=== PATIENT | female | born 1955 | race Caucasian/White ===

== ENCOUNTER 2022-04-21 14:49 | Emergency (ER) | payer BC, MEDICARE ==
[2022-04-21 15:40] VITALS: BP 119/60; PULSE 63; RESP 18; TEMP 98
--- NOTE | 2022-04-21 15:56 | XR ---
EXAMINATION TYPE: XR chest 2V DATE OF EXAM: 04/21/2022 COMPARISON: NONE HISTORY: Right-sided rib pain TECHNIQUE: 2 views FINDINGS: Heart and mediastinum are normal. Lungs are clear. Diaphragm is normal. Bony thorax is inta ct. Thoracic aorta is atheromatous. IMPRESSION: No active cardiopulmonary disease.
[2022-04-21] MEDS ORDERED: ACET/COD 300 MG/30 MG STARTER PACK 6 TAB BTL PO STA (19:15)
[2022-04-21] MEDS ORDERED: IBUPROFEN 600 MG TAB PO STA (19:15)
[2022-04-21] MEDS ORDERED: IBUPROFEN 600 MG STARTER PACK 4 TAB BTL PO STA (19:15)
[2022-04-21] MEDS ORDERED: Acetaminophen-Codeine 300-30mg TAB PO STA (19:15)
--- NOTE | 2022-04-21 19:22 | ED ---
Fall HPI - General Chief Complaint: Fall Stated Complaint: 04/16 fall/R side Pain Time Seen by Provider: 04/21/22 19:09 Source: patient Mode of arrival: ambulatory - History of Present Illness Initial Comments: This is a pleasant 66-year-old female states she fell in her kitchen about one week ago and hit her right posterior ribs on the corner of a cabinet. Patient states she was giving it time but is still complaining of pain to the area. Pain is sharp, exacerbated by movement and palpation. She denies any shortness of breath. She denies any fever or chills. No chest pain. The injury. Has been using regular aspirin for pain control. No headache, no fever or chills, no changes in vision or hearing, no sore throat or difficulty with speech, no neck pain, no chest pain or shortness of breath, no abdominal pain, no nausea or vomiting, no changes in urination or bowel movements, no numbness or tingling, no extremity pain, no skin rashes or l esions. MD Complaint: fall - Related Data Home Medications Medication Instructions Recorded Confirmed Acetaminophen Tab [Tylenol] 650 mg PO Q6H PRN 08/06/16 08/06/16 Previous Rx's Medication Instructions Recorded Hydrocodone/Acetaminophen [[place] 1 tab PO Q6HR PRN #20 tab 08/06/16 5-325] Acetaminophen-Codeine 300-30mg 1 each PO Q6H PRN #12 tablet 04/21/22 [Tylenol w/codeine #3] Ibuprofen [Motrin] 600 mg PO Q8HR PRN #30 tab 04/21/22 Allergies Allergy/AdvReac Type Severity Reaction Status Date / Time Penicillins Allergy Rash/Hives Verified 04/21/22 15:39 Review of Systems ROS Statement: Those systems with pertinent positive or pertinent negative responses have been documented in the HPI. ROS Other: All systems not noted in ROS Statement are negative. Past Medical History Past Medical History: Asthma History of Any Multi-Drug Resistant Organisms: None Reported Past Surgical History: Orthopedic Surgery Additional Past Surgical History / Comment(s): right wrist pain, right knee Past Psychological History: No Psychological Hx Reported Past Alcohol Use History: None Reported Past Drug Use History: None Reported General Exam - General Exam Comments Initial Comments: Patient in distress secondary to rib pain. However does not appear to be ill or toxic. Vital signs reviewed. Cranial nerves II through XII are intact. Limitations: no limitations General appearance: in distress Head exam: Present: atraumatic, normocephalic, normal inspection Eye exam: Present: normal appearance, PERRL, EOMI. Absent: scleral icterus, conjunctival injection, periorbital swelling ENT exam: Present: normal exam, normal oropharynx, mucous membranes moist. Absent: mucous membranes dry Neck exam: Present: normal inspection, full ROM. Absent: tenderness, meningismus, lymphadenopathy Respiratory exam: Present: normal lung sounds bilaterally, chest wall tenderness (Right posterior chest wall tenderness. No break in skin integrity.). Absent: respiratory distress, wheezes, rales, rhonchi, stridor, accessory muscle use, decreased breath sounds, prolonged expiratory Cardiovascular Exam: Present: regular rate, normal rhythm, normal heart sounds. Absent: systolic murmur, diastolic murmur, rubs, gallop, clicks GI/Abdominal exam: Present: soft, normal bowel sounds. Absent: distended, tenderness, guarding, rebound, rigid Extremities exam: Present: normal inspection, full ROM, normal capillary refill. Absent: tenderness, pedal edema, joint swelling, calf tenderness Back exam: Present: normal inspection Neurological exam: Present: alert, oriented X3, CN II-XII intact Psychiatric exam: Present: normal affect, normal mood Skin exam: Present: warm, dry, intact, normal color. Absent: rash Course Vital Signs 04/21/22 15:35 Temperature 98 F Pulse Rate 63 Respiratory 18 Rate Blood Pressure 119/60 O2 Sat by Pulse 98 Oximetry Medical Decision Making - Medical Decision Making Counseling conservative therapy. Patient given Tylenol with codeine starter pack and a short course prescription. Also can use anti-inflammatory medication. There is no evidence of pneumothorax. No evidence of hemothorax. No respiratory distress. No evidence of infectious process. X-rays read as negative by radiology. However the patient appears to have displaced fractures of rib #7 and 8 on the right posteriorly as read by me. Supervising physician is Dr. Abernathy The case was discussed in detail with ED attending physician. Presentation, findings, treatment plan discussed in detail. - Radiology Data Radiology results: report reviewed (X-ray read as negative by radiology. However, I believe the patient has 2 displaced rib fractures of rib #7 and 8 posteriorly on the right.), image reviewed (Patient has 2 displaced, closed rib fractures to that appears to be ribs 7 and 8 on the right. This was read as negative by radiology.) Disposition Clinical Impression: Multiple fractures of ribs, right side, initial encounter for closed fracture Disposition: HOME SELF-CARE Condition: Stable Instructions (If sedation given, give patient instructions): Rib Fracture (ED), Fall Prevention for Older Adults (ED) Additional Instructions: Take 10 deep breaths every hour as directed. Apply heat but only 20 minutes on and off to the affected area. Follow-up with your regular doctor. Follow-up with your regular physician as directed. Return to the ER immediately if any symptoms worsen, new symptoms arise, or any other problems develop. The patient is a bed you can use regular Tylenol in place of the acetaminophen/codeine. Do not take both at the same time. Prescriptions: Ibuprofen [Motrin] 600 mg PO Q8HR PRN #30 tab PRN Reason: Pain Acetaminophen-Codeine 300-30mg [Tylenol w/codeine #3] 1 each PO Q6H PRN #12 tablet PRN Reason: Pain Is patient prescribed a controlled substance at d/c from ED?: Yes When asked, does pt state using other controlled substances?: No If prescribed controlled substance>3 days was MAPS reviewed?: Prescribed <3 Days Referrals: Kel Rascon [STAFF PHYSICIAN] - 04/25/22 Time of Disposition: 19:17
== END 2022-04-21 19:45 | disposition home or self-care (01) ==
LOC: EC 14:49
DX: S22.41XA Multiple fractures of ribs, right side, initial encounter for closed fracture (principal); W19.XXXA Unspecified fall, initial encounter; W22.8XXA Striking against or struck by other objects, initial encounter
CPT/HCPCS: 71046; 99284

== ENCOUNTER → 2022-07-07 | Outpatient (CLI) | payer MEDICARE ==
--- NOTE | 2022-07-07 09:15 | MR ---
INDICATION: Patient age:Female; 67 years old; Reason for study: R22.2 LOCALIZED SWELLING, MASS AND LUMP, TRUNK; PHH. COMPARISON: None. TECHNIQUE: Multi planar, multi sequence imaging was performed of the thoracic spine before and after the administration of 6 mL of gadolinium this intravenously. FINDINGS: The thoracic vertebral bodies have preserved heights and alignment. No evidence of acute fracture. No paraspinal edema. The osseous structure have normal signal intensity. Thoracic spinal cord appears u nremarkable. There is no evidence of extradural defects or central spinal canal narrowing at any thor acic vertebral body level. Schmorl's node involving the superior endplate of T12. Intervertebral dis cs demonstrate normal signal intensity. No abnormal contrast enhancement. Bilateral posterior subsegm ental atelectasis. IMPRESSION: 1. No MRI evidence of acute thoracic spine fracture. 2. No disc herniation or significant central canal stenosis. 3. No abnormal contrast enhancement.
== END | disposition home or self-care (01) ==
LOC: RADMRIMAIN 07:53
PROVIDERS: ATTEND Orthopaedic Surgery
DX: R22.2 Localized swelling, mass and lump, trunk (principal)
CPT/HCPCS: 72157; A9585

== ENCOUNTER → 2022-08-25 | Outpatient (CLI) | payer MEDICARE ==
--- NOTE | 2022-08-26 05:13 | MR ---
EXAMINATION TYPE: MR scapula RT wo/w con DATE OF EXAM: 08/25/2022 COMPARISON: None HISTORY: Rt scapula lump CONTRAST: Standard multiplanar, multisequence MRI departmental protocol images were obtained without contrast a nd with 6 mL intravenous Gadavist gadolinium contrast. There is a marker over the right posterior shoulder at the level of the inferior wing of the scapula. This apparently is the area of concern. The scapula wing appears intact. There is callus formation r elated to multiple posterior right healing rib fractures. It is difficult to count the ribs. There ar e at least 4 healing fractures. No evidence of a soft tissue mass. No pathologic fluid collection. I see no pathologic enhancement. No evidence of pleural effusion. IMPRESSION: Multiple healing right posterior rib fractures. No evidence of scapular fracture.
== END | disposition home or self-care (01) ==
LOC: RADMRIMAIN 07-28 07:41
PROVIDERS: ATTEND Orthopaedic Surgery
DX: S22.41XD Multiple fractures of ribs, right side, subsequent encounter for fracture with routine healing (principal)
CPT/HCPCS: 73220; A9585

== ENCOUNTER 2025-01-25 17:22 | Emergency (ER) | payer MEDICARE ==
[2025-01-25 17:51] VITALS: BP 179/86; PULSE 103; RESP 18; TEMP 97.9
--- NOTE | 2025-01-25 18:01 | ED ---
General Adult HPI - General Source: patient, RN notes reviewed Mode of arrival: ambulatory Limitations: no limitations <Dipika Elizondo - Last Filed: 01/25/25 18:00> - General Source: patient, RN notes reviewed, old records reviewed <Jose Manuel Mcwilliams - Last Filed: 01/25/25 20:45> - General Chief complaint: Extremity Injury, Lower Stated complaint: L Leg Swollen Time Seen by Provider: 01/25/25 17:38 - History of Present Illness Initial comments: Quick [id number] female presents emergency department with chief complaint of nontraumatic left hip pain. States the pain has been relatively constant over the past 2 months. Denies recent/known injuries or falls. Endorses pain with ambulation (Dipika Elizondo) Patient is a 69-year-old female who presents emergency department originally as a quick note. Presents with 2 months of atraumatic left hip pain. Was walking downstairs 2 months ago when she bent it wrong and twisted it. Has been having left hip pain since. Is having difficulty with moving upstairs. Pain with movement. No sensory deficits. Mild weakness secondary to pain. No back pain. Denies any paralysis of lower extremities, denies any saddle paresthesias, denies any urinary or bowel incontinence or retention. Denies any other injuries at that time. Does not follow-up with a doctor. Presents for further evaluation. Imaging obtained while patient was in triage as a quick note. (Jose Manuel Mcwilliams) - Related Data Home Medications Medication Instructions Recorded Confirmed Aspirin 975 mg PO TID PRN 08/13/22 08/13/22 Previous Rx's Medication Instructions Recorded FLUoxetine HCL [PROzac] 30 mg PO DAILY 30 Days cap 08/15/22 Melatonin 5 mg PO HS #30 tablet 08/15/22 Nicotine 21Mg/24Hr Patch [Habitrol] 1 patch TRANSDERM DAILY 14 Days 08/15/22 patch OLANZapine [ZyPREXA] 2.5 mg PO TID 30 Days tab 08/15/22 Cyclobenzaprine [Flexeril] 5 mg PO TID PRN 7 Days #21 tablet 01/25/25 Allergies Allergy/AdvReac Type Severity Reaction Status Date / Time Penicillins Allergy Anaphylaxis Verified 01/25/25 17:47 Review of Systems ROS Other: All systems not noted in ROS Statement are negative. <Dipika Elizondo - Last Filed: 01/25/25 18:00> ROS Other: All systems not noted in ROS Statement are negative. <Jose Manuel Mcwilliams - Last Filed: 01/25/25 20:45> ROS Statement: Those systems with pertinent positive or pertinent negative responses have been documented in the HPI. Review of Systems: CONST: Denies fever EYES: Denies blurry vision ENT: Denies nasal congestion C/V: Denies Chest pain RESP: Denies shortness of breath GI: Denies abdominal pain : Denies dysuria SKIN: Denies rash. MSK: Left hip pain NEURO: Denies headache (Jose Manuel Mcwilliams) Past Medical History Past Medical History: Asthma Additional Past Medical History / Comment(s): fx'd ribs on the right side. History of Any Multi-Drug Resistant Organisms: None Reported Past Surgical History: No Surgical Hx Reported, Orthopedic Surgery Additional Past Surgical History / Comment(s): right wrist pain, right knee Past Anesthesia/Blood Transfusion Reactions: No Reported Reaction Past Psychological History: No Psychological Hx Reported Smoking Status: Current every day smoker Past Alcohol Use History: Rare Past Drug Use History: None Reported <Dipika Elizondo - Last Filed: 01/25/25 18:00> General Exam Limitations: no limitations <Dipika Elizondo - Last Filed: 01/25/25 18:00> <Jose Manuel Mcwilliams - Last Filed: 01/25/25 20:45> - General Exam Comments Initial Comments: Visual Physical Exam Vital signs reviewed General: Well-appearing, nontoxic, no acute distress. Head: Normocephalic, atraumatic Eyes: PERRLA, EOMI ENT: Airway patent Chest: Nonlabored breathing Skin: No visual rash, normal skin tone Neuro: Alert and oriented 3 Musculoskeletal: No gross abnormalities (Caro,Dipika) General: Appears in mild distress secondary to pain. HEAD: Normal with no signs of head trauma. EYES: EOMI. ENT: Hearing grossly intact. RESPIRATORY: No respiratory distress. C/V: Regular rate and rhythm. ABD: Abdomen is nondistended. EXT: No obvious deformity of the pelvis or left hip. Decreased range of motion of left hip secondary to pain but she does have normal range of motion of it. No obvious deformities palpated. No obvious skin findings or swelling. No back pain. Pelvis is stable. SKIN: No rashes or lesions observed on exposed skin. NEURO: Alert and oriented. (Jose Manuel Mcwilliams) Course Vital Signs 01/25/25 17:47 Temperature 97.9 F Pulse Rate 103 H Respiratory 18 Rate Blood Pressure 179/86 O2 Sat by Pulse 97 Oximetry Medical Decision Making <Dipika Elizondo - Last Filed: 01/25/25 18:00> <Jose Manuel Mcwilliams - Last Filed: 01/25/25 20:45> - Medical Decision Making I completed the quick note portion of this chart signed Dipika Elizondo PA-C (Dipika Elizondo) Was pt. sent in by a medical professional or institution (DEISY Martinez, UNDERWRITING CLERK, urgent care, hospital, or longterm...) When possible be specific @ -No Did you speak to anyone other than the patient for history (EMS, parent, family, police, friend...)? What history was obtained from this source @ -No Did you review nursing and triage notes (agree or disagree)? Why? @ -I reviewed and agree with nursing and triage notes Were old charts reviewed (outside hosp., previous admission, EMS record, old EKG, old radiological studies, urgent care reports/EKG's, longterm records)? Report findings @ -No old charts were reviewed Differential Diagnosis (chest pain, altered mental status, abdominal pain women, abdominal pain men, vaginal bleeding, weakness, fever, dyspnea, syncope, headache, dizziness, GI bleed, back pain, seizure, CVA, palpatations, mental health, musculoskeletal)? @ -Differential Musculoskeletal Muscular strain, contusion, ligament sprain, fracture, arthritis, septic arthritis, bursitis, cellulitis, muscle spasm, nerve compression, DVT, arterial occlusion, herpes zoster, electrolyte abnormality, tumor.... This is not meant to be in all inclusive list EKG interpreted by me (3pts min.). @ -None done X-rays interpreted by me (1pt min.). @ -X-ray of the pelvis and hips negative for any obvious traumatic injury. CT interpreted by me (1pt min.). @ -None done U/S interpreted by me (1pt. min.). @ -None done What testing was considered but not performed or refused? (CT, X-rays, U/S, labs)? Why? @ -None What meds were considered but not given or refused? Why? @ -None Did you discuss the management of the patient with other professionals (professionals i.e. , PA, UNDERWRITING CLERK, lab, RT, psych nurse, social work assistant, polisher aluminum, teacher, forestry technical officer, therapeutic case manager)? Give summary @ -No Was smoking cessation discussed for >3mins.? @ -No Was critical care preformed (if so, how long)? @ -No Were there social determinants of health that impacted care today? How? (Homelessness, low income, unemployed, alcoholism, drug addiction, transportation, low edu. Level, literacy, decrease access to med. care, senior living, rehab)? @ -No Was there de-escalation of care discussed even if they declined (Discuss DNR or withdrawal of care, Hospice)? DNR status @ -No What co-morbidities impacted this encounter? (DM, HTN, Smoking, COPD, CAD, Cancer, CVA, ARF, Chemo, Hep., AIDS, mental health diagnosis, sleep apnea, morbid obesity)? @ -None Was patient admitted / discharged? Hospital course, mention meds given and route, prescriptions, significant lab abnormalities, going to OR and other pertinent info. @ -Patient presents with 2-month history of left hip pain. X-ray obtained while patient was in triage and negative for any obvious acute injury or process. I evaluated patient after she was placed in a room. Vitals within acceptable limits. No red flag symptoms concerning for cauda equina syndrome. No concern for cauda equina syndrome. I discussed results with the patient. Possibly a sprain or possibly nerve impingement however patient requires follow- up with orthopedics. She was in agreement this plan. She is able to ambulate I recommended she obtain a cane for aid with this. She was given a starter pack of Tylenol 3 for home, Flexeril prescription, as well as instructions to use Tylenol and Motrin at home. She will be given IM Toradol and IM Solu-Medrol here in the department. She was in agreement this plan. Vitals within acceptable limits. Strict return precautions discussed. I instructed the patient to follow up with their PCP in the next 1-3 days. I provided contact information for follow up with orthopedics. I explained that the patient should return to the emergency department if they experience any worsening symptoms. Strict return precautions were discussed with the patient. The patient expressed understanding of these instructions. I answered all questions that the patient had. The patient was discharged home in good condition with their prescriptions and follow up information. Undiagnosed new problem with uncertain prognosis? @ -No Drug Therapy requiring intensive monitoring for toxicity (Heparin, Nitro, Insulin, Cardizem)? @ -No Were any procedures done? @ -No Diagnosis/symptom? @ -Left hip pain/sprain Acute, or Chronic, or Acute on Chronic? @ -Acute on chronic Uncomplicated (without systemic symptoms) or Complicated (systemic symptoms)? @ -Uncomplicated Side effects of treatment? @ -No Exacerbation, Progression, or Severe Exacerbation? @ -No Poses a threat to life or bodily function? How? (Chest pain, [place], [place], pneumonia, PE, COPD, DKA, ARF, appy, cholecystitis, CVA, Diverticulitis, Homicidal, Suicidal, threat to staff... and all critical care pts) @ -Unlikely at this time (Jose Manuel Mcwilliams) Disposition <Dipika Elizondo - Last Filed: 01/25/25 18:00> Is patient prescribed a controlled substance at d/c from ED?: No Time of Disposition: 20:00 <Jose Manuel Mcwilliams - Last Filed: 01/25/25 20:45> Clinical Impression: Hip pain, Sprain of left hip Disposition: ADMITTED IP TO THIS HOSP Condition: Stable Instructions (If sedation given, give patient instructions): Hip Sprain (ED), Hip Pain (ED) Additional Instructions: He is analgesia medications as needed. Follow-up with orthopedic surgery for further evaluation of your left hip. You may require further imaging and evaluation. Use cane for stability. Can also use [id number] Tylenol and Motrin at home. Return if any worsening symptoms. Prescriptions: Cyclobenzaprine [Flexeril] 5 mg PO TID PRN 7 Days #21 tablet PRN Reason: Pain Referrals: None,Stated [Primary Care Provider] - 1-2 days Fernie Khoury DO [Doctor of Osteopathic Medicine] - 1-2 days Forms: Area PCPs
--- NOTE | 2025-01-25 18:53 | XR ---
EXAMINATION TYPE: XR Hip LT and AP Pelvis DATE OF EXAM: 01/25/2025 6:25 PM COMPARISON: None CLINICAL INDICATION: Female, 69 years old with history of pain; PHH, pain TECHNIQUE: XR Hip LT and AP Pelvis; hip was examined in the frontal and lateral projections and a AP pelvis. FINDINGS: No evidence for acute process, joint dislocation or significant soft tissue swelling. Osteo phyte formation of the superior acetabulum of the hip. There is mild joint space narrowing. Arthrosis course of the aortic bifurcation versus stents. IMPRESSION: 1. No evidence for acute process. 2. Mild hip osteoarthrosis. [facility], , 01/25/2025 6:51 PM
[2025-01-25] MEDS: ACET/COD 300 MG/30 MG STARTER PACK 6 TAB BTL PO STA (20:14)
[2025-01-25] MEDS: KETOROLAC 15 MG/ML 1 ML VIAL IM STA (20:14)
[2025-01-25] MEDS: methylPREDNISolone SOD SUCCI 125 MG/2 ML VIAL IM ONE (20:16)
== END 2025-01-25 20:26 | disposition other institution (70) ==
LOC: EC 17:22
DX: S73.102A Unspecified sprain of left hip, initial encounter (principal); F17.290 Nicotine dependence, other tobacco product, uncomplicated; Z88.0 Allergy status to penicillin; X50.1XXA Overexertion from prolonged static or awkward postures, initial encounter
CPT/HCPCS: 73502; 99284; 96372 ×2; J1885; J2919